=== PATIENT | female | born 1990 | race Caucasian/White ===

== ENCOUNTER 2018-06-29 23:32 | Emergency (ER) | payer SELFPAY ==
[~2018-06-29] VITALS: Ht 167.6 cm; Wt 61.3 kg
[2018-06-29 23:38] VITALS: BP 148/94; PULSE 88; RESP 19; Ht 167.6 cm; Wt 61.3 kg
[2018-06-30] MEDS ORDERED: ACET-141 PO (02:44)
--- NOTE | 2018-06-30 07:32 | ERD ---
ER Documentation Chief Complaint Chief Complaint NUMBNESS XMONTHS; ON/OFF CP XMONTHS; WORSE 2WKS; NO CP AT THIS TIME HPI 28-year-old female presents for chest pain, arm numbness for about a month. States that the pain has been getting a little bit worse over the past 2 weeks. She does not currently have chest pain. States that when she does have chest pain is intermittent, substernal, rated 6 out of 10. Associated bilateral arm numbness which is worse on the left than on the right. Denies any muscle weakness. No recent travel, no recent sickness. Denies abdominal pain, nausea, vomiting. Denies fevers or chills. ROS All systems reviewed and are negative except as per history of present illness. Medications Home Meds Active Scripts Acetaminophen* (Acetaminophen*) 500 MG Extra Strength Tablet, 500 MG PO Q4H PRN for PAIN AND OR ELEVATED TEMP, #30 TAB Prov:LEONARD GARVIN DO 06/30/18 PMhx/Soc Medical and Surgical Hx: pt denies Medical Hx, pt denies Surgical Hx Hx Alcohol Use: No Hx Substance Use: No Hx Tobacco Use: No Smoking Status: Never smoker Physical Exam Vitals Vital Signs Date Temp Pulse Resp B/P (MAP) Pulse Ox O2 O2 Flow FiO2 Time Delivery Rate 06/29/18 97.5 88 19 148/94 97 23:38 (112) Physical Exam Const: No acute distress Head: Atraumatic Eyes: Normal Conjunctiva ENT: Normal External Ears, Nose and Mouth. Neck: Full range of motion. No meningismus. Resp: Clear to auscultation bilaterally Cardio: Regular rate and rhythm, no murmurs Abd: Soft, non tender, non distended. Normal bowel sounds Skin: No petechiae or rashes Back: No midline or flank tenderness Ext: No cyanosis, or edema Neur: Awake and alert Psych: Normal Mood and Affect Procedures/MDM Medical Decision Making: Differential diagnosis includes but not limited to ACS, pneumonia, pulmonary embolism, aortic dissection, musculoskeletal pain Patient appeared well on physical exam. Given young age and lack of risk factors is low suspicion for ACS. Also EKG was normal sinus rhythm, no ST or T wave changes Chest x-ray was unremarkable No history of fever with chest pain, no history of cough to suggest pneumonia. Patient likely has chest pain due to musculoskeletal origin. Prescription(s): Patient given prescription for Tylenol. Patient advised to follow up with PCP in 1-2 days. Patient advised to return to ED for new or worsening symptoms. Patient stable on discharge from the ED. Disclaimer: Inadvertent spelling and grammatical errors are likely due to E HR/dictation software use and do not reflect on the overall quality of patient care. Also, please note that the electronic time recorded on this note does not necessarily reflect the actual time of the patient encounter. Departure Diagnosis: Primary Impression: Chest pain Additional Impression: Numbness Condition: Fair Patient Instructions: Chest Pain, Uncertain Cause, Paraesthesias Referrals: [facility] YOU HAVE RECEIVED A MEDICAL SCREENING EXAM AND THE RESULTS INDICATE THAT YOU DO NOT HAVE A CONDITION THAT REQUIRES URGENT TREATMENT IN THE EMERGENCY DEPARTMENT. FURTHER EVALUATION AND TREATMENT OF YOUR CONDITION CAN WAIT UNTIL YOU ARE SEEN IN YOUR DOCTORS OFFICE WITHIN THE NEXT 1-2 DAYS. IT IS YOUR RESPONSIBILITY TO MAKE AN APPOINTMENT FOR FOLOW-UP CARE. IF YOU HAVE A PRIMARY DOCTOR --you should call your primary doctor and schedule an appointment IF YOU DO NOT HAVE A PRIMARY DOCTOR YOU CAN CALL OUR PHYSICIAN REFERRAL HOTLINE AT IF YOU CAN NOT AFFORD TO SEE A PHYSICIAN YOU CAN CHOSE FROM THE FOLLOWING [facility] [address] [facility]. [facility] [address] [facility] [facility] [address] [facility] [facility] [address] [facility] [facility] [address] [facility]. [facility]. [address] Additional Instructions: Call your primary care doctor TOMORROW for an appointment during the next 1-2 days.See the doctor sooner or return here if your condition worsens before your appointment time. LEONARD GARVIN DO Jun 30, 2018 07:32
== END 2018-06-30 03:02 | disposition home or self-care (01) ==
LOC: FTE 23:32
DX: R07.9 Chest pain, unspecified (principal)
CPT/HCPCS: 71046; 93005